=== PATIENT | female | born 1960 | race American Indian/Alaskan Native ===

== ENCOUNTER 2019-11-20 08:30 | Emergency (ER) | payer BC ==
[2019-11-20 08:44] VITALS: BP 147/82
--- NOTE | 2019-11-20 10:08 | Emergency Department Report ---
ED Lower Extremity HPI - General Chief Complaint: Extremity Problem,Nontraumatic Stated Complaint: RT KNEE PAIN/SWELLING/POSS CLOT Time Seen by Provider: 11/20/19 09:59 Source: patient Mode of arrival: Wheelchair Limitations: No Limitations - History of Present Illness Initial Comments: Patient is 58 years old female with history of DVT, protein S deficiency. Patient presented to the ER complaining of right knee pain after she hit the wall accidentally with her knee. Patient denied any other injuries. Patient denied any recent immobilization. No fever or chills. MD Complaint: knee injury -: Last night Injury: Knee: Right Type of Injury: blunt Place: home Severity: moderate Severity scale (0 -10): 5 Improves With: NSAID Context: direct blow Associated Symptoms: able to partially bear weight. denies: snap/pop sensation, swelling, numbness, tingling, unable to bear weight ED Review of Systems ROS: Stated complaint: RT KNEE PAIN/SWELLING/POSS CLOT Other details as noted in HPI Comment: All other systems reviewed and negative Constitutional: denies: chills, fever Respiratory: denies: cough, shortness of breath, SOB with exertion Cardiovascular: denies: chest pain, palpitations Gastrointestinal: denies: abdominal pain, nausea, vomiting Musculoskeletal: denies: back pain Neurological: denies: headache, weakness, numbness, paresthesias, confusion ED Past Medical Hx - Past Medical History Previous Medical History?: Yes Hx Deep Vein Thrombosis: Yes Additional medical history: Protein def ED Physical Exam - General Limitations: No Limitations General appearance: alert, in no apparent distress - Head Head exam: Present: atraumatic, normocephalic, normal inspection - Eye Eye exam: Present: normal appearance - ENT ENT exam: Present: normal exam, normal orophraynx, mucous membranes moist - Neck Neck exam: Present: normal inspection, full ROM. Absent: tenderness, meningismus, lymphadenopathy, thyromegaly - Respiratory Respiratory exam: Present: normal lung sounds bilaterally - Cardiovascular Cardiovascular Exam: Present: regular rate, normal rhythm, normal heart sounds - GI/Abdominal GI/Abdominal exam: Present: soft, normal bowel sounds. Absent: distended, tenderness, guarding, rebound, rigid, organomegaly, mass, bruit, pulsatile mass, hernia - Extremities Exam Extremities exam: Present: normal inspection, normal capillary refill. Absent: pedal edema, calf tenderness - Expanded Lower Extremity Exam Right Knee exam: Present: normal inspection, tenderness. Absent: full ROM, swelling, abrasion, laceration, ecchymosis, deformity, crepidus, dislocation, erythema, effusion - Back Exam Back exam: Present: normal inspection, full ROM. Absent: CVA tenderness (R), CVA tenderness (L), muscle spasm, paraspinal tenderness, vertebral tenderness - Neurological Exam Neurological exam: Present: alert, oriented X3, CN II-XII intact - Skin Skin exam: Present: warm, intact, normal color ED Course Vital Signs 11/20/19 08:43 Temperature 98.2 F Pulse Rate 74 Respiratory 16 Rate Blood Pressure 147/82 O2 Sat by Pulse 99 Oximetry ED Lower Extremity MDM - Radiology Data Radiology results: report reviewed - Medical Decision Making Patient is 58 years old female with history of DVT, protein S deficiency. Patient presented to the ER complaining of right knee pain after she hit the wall accidentally with her knee. Patient denied any other injuries. Patient denied any recent immobilization. No fever or chills. X-ray of the right knee showed osteoarthritis but no fracture or dislocation. Patient given prescription for tramadol and advised to follow up with her primary care physician in the next 2-3 days and to return to the ER if symptoms are not improved. Critical care attestation.: If time is entered above; I have spent that time in minutes in the direct care of this critically ill patient, excluding procedure time. ED Disposition Clinical Impression: Contusion of right knee Disposition: DC-01 TO HOME OR SELFCARE Is pt being admited?: No Condition: Stable Instructions: Knee Pain (ED), Arthralgia (ED) Referrals: MAKENZIE VALLEJO MD [Primary Care Provider] - 3-5 Days
--- NOTE | 2019-11-20 11:11 | XRay Report ---
RIGHT KNEE 3 VIEWS INDICATION / CLINICAL INFORMATION: right knee injury. COMPARISON: None available. FINDINGS: Mild degenerative change in the medial and patellofemoral compartments. No other significant skeletal abnormality. Signer Name: Tadeo Carroll MD FACViviana Signed: 11/20/2019 11:07 AM Workstation Name: [id number]
== END 2019-11-20 12:18 | disposition home or self-care (01) ==
LOC: ED 08:30
DX: S80.01XA Contusion of right knee, initial encounter (principal); Z86.718 Personal history of other venous thrombosis and embolism; W22.01XA Walked into wall, initial encounter; Y93.89 Activity, other specified; Y92.89 Other specified places as the place of occurrence of the external cause; Y99.8 Other external cause status

== ENCOUNTER 2020-03-16 17:58 | Emergency (ER) | payer BC ==
[2020-03-16 18:12] VITALS: BP 178/92
--- NOTE | 2020-03-16 20:08 | XRay Report ---
LEFT TOES 3 VIEWS INDICATION / CLINICAL INFORMATION: pain and swelling 4th digit. COMPARISON: None available. FINDINGS: No significant skeletal abnormality Signer Name: Tadeo Carroll MD FACR Signed: 03/16/2020 8:04 PM Workstation Name: [id number]
--- NOTE | 2020-03-16 20:41 | Emergency Department Report ---
ED Lower Extremity HPI - General Chief Complaint: Extremity Injury, Lower Stated Complaint: LFT FOOT BROKE/PAIN Time Seen by Provider: 03/16/20 19:48 Source: patient Mode of arrival: Ambulatory Limitations: No Limitations - Related Data Previous Rx's Medication Instructions Recorded Last Taken Type Ondansetron [Zofran Odt] 4 mg PO Q8HR PRN #14 tab.rapdis 11/20/19 Unknown Rx traMADoL [Ultram 50 MG tab] 50 mg PO Q4HR PRN #14 tablet 11/20/19 Unknown Rx Allergies Allergy/AdvReac Type Severity Reaction Status Date / Time No Known Allergies Allergy Verified 11/20/19 12:41 ED Review of Systems ROS: Stated complaint: LFT FOOT BROKE/PAIN Other details as noted in HPI Comment: All other systems reviewed and negative ED Past Medical Hx - Past Medical History Previous Medical History?: Yes Hx Hypertension: Yes Hx Deep Vein Thrombosis: Yes Additional medical history: Protein def - Surgical History Past Surgical History?: Yes Additional Surgical History: tonsil removed - Social History Smoking Status: Former Smoker Substance Use Type: None - Medications Home Medications: Home Medications Medication Instructions Recorded Confirmed Last Taken Type Ondansetron [Zofran Odt] 4 mg PO Q8HR PRN #14 tab.rapdis 11/20/19 Unknown Rx traMADoL [Ultram 50 MG tab] 50 mg PO Q4HR PRN #14 tablet 11/20/19 Unknown Rx ED Physical Exam - General Limitations: No Limitations - Head Head exam: Present: atraumatic, normocephalic - Eye Eye exam: Present: normal appearance - ENT ENT exam: Present: mucous membranes moist - Extremities Exam Extremities exam: Present: tenderness (To the left fourth toe with some mild lateral deviation. There is tenderness with palpation at the metatarsophalangeal joint. Mild swelling is noted. Pulses are 2+ capillary refills are brisk.), normal capillary refill, joint swelling - Back Exam Back exam: Absent: CVA tenderness (R), CVA tenderness (L) - Neurological Exam Neurological exam: Present: alert, altered, oriented X3, CN II-XII intact ED Course Vital Signs 03/16/20 18:07 Temperature 98.6 F Pulse Rate 73 Respiratory 20 Rate Blood Pressure 178/92 O2 Sat by Pulse 99 Oximetry ED Lower Extremity MDM - Radiology Data Radiology results: report reviewed Referring Physician:BETHANY STARKPatient Name:NERI AHUJATPatient ID:[id number] of :[id number]:FemaleAccession:[id number] Date:[id number] Status:Finalized Findings [facility] [address] [place] [address] XRay Report Signed Patient: NERI JEAN MR#: [id number] : 1960 Acct:[id number] Age/Sex: 59 / F ADM Date: 03/16/20 Loc: ED Attending Dr: Ordering Physician: BETHANY STARK MD Date of Service: 03/16/20 Procedure(s): XR toe(s) 2+V LT Accession Number(s): [id number] cc: BETHANY STARK MD Fluoro Time In Minutes: LEFT TOES 3 VIEWS INDICATION / CLINICAL INFORMATION: pain and swelling 4th digit. COMPARISON: None available. FINDINGS: No significant skeletal abnormality Signer Name: Tadeo Carroll MD FACR Signed: 03/16/2020 8:04 PM Workstation Name: [id number] Transcribed By: MS Dictated By: Tadeo Carroll MD Electronically Authenticated By: Tadeo Carroll MD Signed Date/Time: 03/16/202003 DD/ 02 TD/TT: - Medical Decision Making Pleasant 59-year-old female hit toe on bed x-rays normal has some swelling tenderness to the region will place and dennis tape for comfort and next and provide her some education on icing the area. She has been advised to rest of the weekend so she can return to work normal duty on Wednesday Critical care attestation.: If time is entered above; I have spent that time in minutes in the direct care of this critically ill patient, excluding procedure time. ED Disposition Clinical Impression: Toe contusion Disposition: -01 TO HOME OR SELFCARE Is pt being admited?: No Does the pt Need Aspirin: No Condition: Stable Instructions: Foot Contusion (ED) Additional Instructions: Please apply ice to your foot daily and refrain from further trauma do not wear and very tight shoes as this could also delay healing over the next 3 to 5 days. He can follow-up with the seamless tube drawer should your pain continue to linger or pr ogressively worsening during this recovery phase Referrals: PRIMARY CARE, [Primary Care Provider] - 3-5 Days ANSELMO CHRISTIE DPM [Staff Physician] - 3-5 Days LAILA LAWTON MD [Staff Physician] - 3-5 Days
== END 2020-03-16 21:04 | disposition home or self-care (01) ==
LOC: ED 17:58
DX: S90.122A Contusion of left lesser toe(s) without damage to nail, initial encounter (principal); I10 Essential (primary) hypertension; Z79.899 Other long term (current) drug therapy; Z98.890 Other specified postprocedural states; X58.XXXA Exposure to other specified factors, initial encounter; Y93.89 Activity, other specified; Y92.89 Other specified places as the place of occurrence of the external cause; Y99.8 Other external cause status
CPT/HCPCS: 99283